=== PATIENT | female | born 1995 | race African-American/Black ===

== ENCOUNTER 2017-01-20 19:47 | Inpatient (IN) | payer OTHER ==
[~2017-01-20] VITALS: Ht 162.6 cm; Wt 87.1 kg
[2017-01-20] MEDS ORDERED: PREN-88 PO (20:42)
[2017-01-20] MEDS ORDERED: LIDOCAINE HCL 1% 20ML VIAL (Pyxis) INJ INFIL SCH (20:45)
[2017-01-20] MEDS ORDERED: CARBOPROST TROMETHAMINE 250 MCG/ML AMPUL IM PRN (20:45)
[2017-01-20] MEDS ORDERED: MISOPROSTOL 100MCG TABLET VG SCH (20:45)
[2017-01-20] MEDS ORDERED: MISOPROSTOL 200MCG TABLET VG SCH (20:45)
[2017-01-20] MEDS ORDERED: METHYLERGONOVINE MALEATE 0.2 MG/ML IM PRN (20:45)
[2017-01-20] MEDS ORDERED: BUTORPHANOL TARTRATE 2 MG/ML VIAL IV PRN (20:45)
[2017-01-20] MEDS: LACTATED RINGERS 1,000 ML IV SCH (20:50)
[2017-01-20 22:20] LABS: BASOPHILS % 0.2 % (0.0-2.0); EOSINOPHILS % 0.5 % (0.0-5.0); HEMATOCRIT. 32.2 % (36.0-48.0); HEMOGLOBIN. 10.9 g/dL (12.0-16.0); LYMPHOCYTES % 18.3 % (20.0-50.0); MEAN CORPUSCULAR HEMOGLOBIN 30.5 pg (28.0-32.0); MEAN CORPUSCULAR VOLUME 89.8 fL (81.0-99.0); MEAN PLATELET VOLUME 8.2 fl (7.4-10.4); MONOCYTES % 4.8 % (2.0-8.0); NEUTROPHILS % 76.2 % (40.0-76.0); PLATELET 176 x1000/uL (130-400); RED BLOOD CELL COUNT 3.58 mill/uL (4.2-5.4); RED CELL DISTRIBUTION WIDTH 13.5 % (11.6-14.6); WHITE BLOOD COUNT 7.4 x1000/uL (4.5-11.0)
[2017-01-20 22:21] LABS: CLARITY URINE CLEAR (CLEAR); COLOR URINE YELLOW (YELLOW); GLUCOSE URINE NEGATIVE (NEGATIVE); KETONES URINE 2+ (NEGATIVE); LEUKOCYTE ESTERASE URINE NEGATIVE (NEGATIVE); NITRITE URINE NEGATIVE (NEGATIVE); OCCULT BLOOD URINE NEGATIVE (NEGATIVE); PH URINE 6.5 (4.5-8.0); PROTEIN URINE NEGATIVE (NEGATIVE); SPECIFIC GRAVITY URINE 1.013 (1.005-1.030)
[2017-01-20] MEDS: CEFAZOLIN 2,000 MG in DEXT 5% WATER 100 ML IV SCH (22:22)
[2017-01-20 22:30] LABS: PROTHROMBIN TIME 10.1 sec
[2017-01-20 22:31] LABS: *AMPHETAMINES SCREEN URINE NEGATIVE (NEGATIVE); *BARBITURATES SCREEN URINE NEGATIVE (NEGATIVE); *BENZODIAZEPINES SCREEN URINE NEGATIVE (NEGATIVE); *COCAINE SCREEN URINE NEGATIVE (NEGATIVE); CANNABINOID URINE SCREEN NEGATIVE (NEGATIVE); ECSTASY MDMA SCREEN URINE NEGATIVE (NEGATIVE); METHADONE URINE SCREEN NEGATIVE (NEGATIVE); OPIATES URINE SCREEN NEGATIVE (NEGATIVE); PHENCYCLIDINE URINE SCREEN NEGATIVE (NEGATIVE)
[2017-01-20 22:36] LABS: ALBUMIN 2.4 g/dL (3.4-5.0); ANION GAP 11; CALCIUM 8.1 mg/dL (8.5-10.1); CARBON DIOXIDE 27 mEq/L (21-32); CHLORIDE 104 mEq/L (98-107); INDEX HEMOLYSI 1 (1-3); INDEX ICTERIC 1 (1-4); INDEX LIPEMIC 1 (1-3); UREA NITROGEN BLOOD 6 mg/dL (7-21)
[2017-01-20 22:39] LABS: ALANINE AMINOTRANSFERASE 126 IU/L (13-61); eGFR > 60 mL/min (>60)
[2017-01-20 22:57] LABS: HEPATITIS B SURFACE ANTIGEN NEGATIVE
[2017-01-21] MEDS ORDERED: BUTORPHANOL TARTRATE 2 MG/ML VIAL IV PRN (01:00)
[2017-01-21] MEDS ORDERED: PROMETHAZINE HCL 25MG TABLET PO PRN (01:00)
[2017-01-21] MEDS: LACTATED RINGERS 1,000 ML IV SCH ×2 (01:21→05:52)
[2017-01-21] MEDS ORDERED: BUPIVACAINE HCL/NS/PF EPIDURAL 100 ML EP ONE (04:51)
[2017-01-21] MEDS ORDERED: BUPIVACAINE HCL/PF 0.25% (2.5MG/ML) 10ML ONE (04:52)
[2017-01-21] MEDS: CEFAZOLIN 2,000 MG in DEXT 5% WATER 100 ML IV SCH (06:29)
[2017-01-21] MEDS: DEXT 5%/LR + PITOCIN 20UNITS/L 1,000 ML IV SCH ×2 (11:21→12:08)
[2017-01-21] MEDS ORDERED: DEXT 5%/LR + PITOCIN 20UNITS/L 1,000 ML IV SCH (11:35)
[2017-01-21] MEDS ORDERED: BISACODYL 10MG SUPP PR PRN (11:45)
[2017-01-21] MEDS ORDERED: IBUPROFEN 400MG TABLET PO PRN (11:45)
[2017-01-21] MEDS ORDERED: ACETAMINOPHEN WITH CODEINE 300/30MG TABLET PO PRN ×2 (11:45)
[2017-01-21] MEDS ORDERED: GLYCERIN/WITCH HAZEL LEAF MEDICATED PAD TOP PRN (11:45)
[2017-01-21] MEDS ORDERED: HEMORRHOIDAL SUPP PR PRN (11:45)
[2017-01-21] MEDS: IBUPROFEN 800MG TABLET PO PRN (12:45)
[2017-01-21 14:15] VITALS: BP 108/59
[2017-01-21 15:45] VITALS: BP 107/63
[2017-01-21] MEDS: SIMETHICONE 80MG TABLET CHEW PO SCH ×2 (17:54→22:27)
[2017-01-21 20:10] VITALS: BP 110/74
[2017-01-21] MEDS: DOCUSATE SODIUM 100MG CAPSULE PO SCH (21:00)
[2017-01-22 07:17] LABS: BASOPHILS % 0.1 % (0.0-2.0); EOSINOPHILS % 0.3 % (0.0-5.0); HEMATOCRIT. 32.2 % (36.0-48.0); HEMOGLOBIN. 10.7 g/dL (12.0-16.0); LYMPHOCYTES % 13.8 % (20.0-50.0); MEAN CORPUSCULAR HEMOGLOBIN 29.9 pg (28.0-32.0); MEAN CORPUSCULAR HGB CONC 33.3 g/dL (31.0-37.0); MEAN PLATELET VOLUME 8.6 fl (7.4-10.4); MONOCYTES % 6.6 % (2.0-8.0); NEUTROPHILS % 79.2 % (40.0-76.0); PLATELET 208 x1000/uL (130-400); RED BLOOD CELL COUNT 3.58 mill/uL (4.2-5.4); RED CELL DISTRIBUTION WIDTH 13.6 % (11.6-14.6)
[2017-01-22 07:45] VITALS: BP 104/76
[2017-01-22] MEDS: IBUPROFEN 800MG TABLET PO PRN (08:38)
[2017-01-22] MEDS: PRENATAL VIT/FE FUMARATE/FA TABLET PO SCH (08:38)
[2017-01-22] MEDS: FERROUS SULFATE 325MG TABLET PO SCH ×3 (08:38→18:08)
[2017-01-22] MEDS: SIMETHICONE 80MG TABLET CHEW PO SCH ×4 (08:39→21:08)
[2017-01-22 16:05] VITALS: BP 117/62
[2017-01-22 20:00] VITALS: BP 109/72
[2017-01-22] MEDS: DOCUSATE SODIUM 100MG CAPSULE PO SCH (21:06)
[2017-01-23 04:15] VITALS: BP 110/71
[2017-01-23] MEDS ORDERED: TETANUS, DIPHTHERIA, PERTUSSIS VAC/PF 0.5ML (>7YR OLD) IM ONE (05:15)
[2017-01-23 08:25] VITALS: BP 114/74
[2017-01-23] MEDS: FERROUS SULFATE 325MG TABLET PO SCH (08:54)
[2017-01-23] MEDS: PRENATAL VIT/FE FUMARATE/FA TABLET PO SCH (08:54)
[2017-01-23] MEDS: SIMETHICONE 80MG TABLET CHEW PO SCH (08:55)
== END 2017-01-23 12:50 | disposition home or self-care (01) | DRG 560 ==
LOC: L&D 19:47 → OBSVTOIN 19:47 → 8EST 01-21 13:35
PROVIDERS: ADMIT Obstetrics & Gynecology; ATTEND Obstetrics & Gynecology
PROC: 0KQM0ZZ Repair Perineum Muscle, Open Approach (ICD-10-PCS; 2017-01-21)
PROC: 00HU33Z Insertion of Infusion Device into Spinal Canal, Percutaneous Approach (ICD-10-PCS; 2017-01-21)
PROC: 3E0R3CZ (ICD-10-PCS; 2017-01-21)
PROC: 10E0XZZ Delivery of Products of Conception, External Approach (ICD-10-PCS; principal; 2017-01-21 11:15)
DX: O69.81X0 Labor and delivery complicated by cord around neck, without compression, not applicable or unspecified (principal); O70.1 Second degree perineal laceration during delivery; Z37.0 Single live birth; Z3A.37 37 weeks gestation of pregnancy; Z23 Encounter for immunization
CPT/HCPCS: 36415; 76805; 76818; 80053; 80305; 81003; 85025; 85610; 85730; 86592; 86703; 86762; 86850; 86900; 87340; 90715; G0378; J0595; J0690; J2590; J3490; J7060; J7120

== ENCOUNTER 2017-04-19 11:59 | Emergency (ER) | payer OTHER ==
[~2017-04-19] VITALS: Ht 162.6 cm; Wt 90.0 kg
[2017-04-19] MEDS ORDERED: ONDANSETRON 4MG ODT PO ONE (13:15)
[2017-04-19] MEDS ORDERED: DICYCLOMINE HCL 10MG CAPSULE PO ONE (13:15)
[2017-04-19 14:19] LABS: BASOPHILS % 0.6 % (0.0-2.0); EOSINOPHILS % 0.5 % (0.0-5.0); HEMATOCRIT. 37.7 % (36.0-48.0); HEMOGLOBIN. 12.6 g/dL (12.0-16.0); LYMPHOCYTES % 15.1 % (20.0-50.0); MEAN CORPUSCULAR HEMOGLOBIN 28.8 pg (28.0-32.0); MEAN CORPUSCULAR HGB CONC 33.3 g/dL (31.0-37.0); MEAN CORPUSCULAR VOLUME 86.4 fL (81.0-99.0); MEAN PLATELET VOLUME 8.3 fl (7.4-10.4); MONOCYTES % 6.5 % (2.0-8.0); NEUTROPHILS % 77.3 % (40.0-76.0); PLATELET 265 x1000/uL (130-400); RED BLOOD CELL COUNT 4.36 mill/uL (4.2-5.4); WHITE BLOOD COUNT 4.7 x1000/uL (4.5-11.0)
[2017-04-19 14:36] LABS: ALANINE AMINOTRANSFERASE 986 IU/L (13-61); ALBUMIN 3.6 g/dL (3.4-5.0); ANION GAP 12; CALCIUM 9.3 mg/dL (8.5-10.1); CARBON DIOXIDE 26 mEq/L (21-32); CHLORIDE 105 mEq/L (98-107); INDEX HEMOLYSI 1 (1-3); INDEX ICTERIC 2 (1-4); INDEX LIPEMIC 1 (1-3); LIPASE 125 IU/L (73-393); UREA NITROGEN BLOOD 11 mg/dL (7-21); eGFR > 60 mL/min (>60)
[2017-04-19 17:23] VITALS: BP 128/74
== END 2017-04-19 17:26 | disposition home or self-care (01) ==
LOC: ER 13:58
DX: K76.0 Fatty (change of) liver, not elsewhere classified (principal)
CPT/HCPCS: 36415; 76705; 80053; 83690; 85025; 99285; Q0162

== ENCOUNTER 2018-03-31 17:04 | Observation (INO) | payer MEDICAID ==
[~2018-03-31] VITALS: Ht 162.6 cm; Wt 95.3 kg
[2018-03-31] MEDS ORDERED: PNV1TABL76 PO (17:19)
[2018-03-31] MEDS ORDERED: CHOL100046 PO (17:19)
[2018-03-31 18:07] LABS: COLOR URINE YELLOW (YELLOW); KETONES URINE NEGATIVE (NEGATIVE); LEUKOCYTE ESTERASE URINE NEGATIVE (NEGATIVE); NITRITE URINE NEGATIVE (NEGATIVE); OCCULT BLOOD URINE NEGATIVE (NEGATIVE); PH URINE 5.5 (4.5-8.0); PROTEIN URINE NEGATIVE (NEGATIVE); SPECIFIC GRAVITY URINE 1.027 (1.005-1.030)
[2018-03-31 19:20] LABS: CLARITY URINE CLEAR (CLEAR)
== END 2018-03-31 19:30 | disposition home or self-care (01) ==
LOC: L&D 17:04
PROVIDERS: ADMIT Specialist; ATTEND Specialist
DX: O26.852 Spotting complicating pregnancy, second trimester (principal); O26.892 Other specified pregnancy related conditions, second trimester; R10.2 Pelvic and perineal pain; Z3A.20 20 weeks gestation of pregnancy
CPT/HCPCS: 76805; 81003; 99281; G0378

== ENCOUNTER 2018-08-08 18:01 | Emergency (ER) | payer MEDICAID ==
[~2018-08-08] VITALS: Ht 162.6 cm; Wt 93.2 kg
[~2018-08-08 18:01] MED LIST: CHOL100046 PO; PNV1TABL76 PO
[2018-08-08 18:15] VITALS: BP 113/67
[2018-08-08 19:22] LABS: CLARITY URINE CLOUDY (CLEAR); COLOR URINE DARK YELLOW (YELLOW); KETONES URINE TRACE (NEGATIVE); LEUKOCYTE ESTERASE URINE 1+ (NEGATIVE); NITRITE URINE NEGATIVE (NEGATIVE); OCCULT BLOOD URINE TRACE (NEGATIVE); PH URINE 5.5 (4.5-8.0); PROTEIN URINE TRACE (NEGATIVE); SPECIFIC GRAVITY URINE 1.028 (1.005-1.030)
== END 2018-08-09 08:11 | disposition left against medical advice (07) ==
LOC: ER 08-09 08:11
DX: M54.9 Dorsalgia, unspecified (principal); R11.0 Nausea
CPT/HCPCS: 81003; 81025; 99283

== ENCOUNTER 2018-08-26 22:26 | Inpatient (IN) | payer MEDICAID ==
[~2018-08-26] VITALS: Ht 162.6 cm; Wt 93.0 kg
[2018-08-27] MEDS ORDERED: FAMOTIDINE 20MG/2ML VIAL IV STA (00:23)
[2018-08-27] MEDS ORDERED: MAGNESIUM/ALUMINUM HYDROXIDE/SIMETHICONE 30ML UDC PO STA (00:23)
[2018-08-27] MEDS ORDERED: MORPHINE SULFATE 4 MG/ML CPJ (NOT FOR IM USE) IV STA (00:23)
[2018-08-27] MEDS ORDERED: KETOROLAC 30MG/ML VIAL IV STA (00:23)
[2018-08-27] MEDS ORDERED: SODIUM CHLORIDE 0.9% 1,000 ML IV ONE (00:23)
[2018-08-27] MEDS ORDERED: ONDANSETRON HCL 4MG/2ML INJ IV STA (00:23)
[2018-08-27 00:55] LABS: BASOPHILS % 0.2 % (0.0-2.0); EOSINOPHILS % 0.2 % (0.0-5.0); HEMATOCRIT. 38.1 % (36.0-48.0); HEMOGLOBIN. 12.5 g/dL (12.0-16.0); LYMPHOCYTES % 8.8 % (20.0-50.0); MEAN CORPUSCULAR HEMOGLOBIN 28.2 pg (28.0-32.0); MEAN CORPUSCULAR VOLUME 85.8 fL (81.0-99.0); MEAN PLATELET VOLUME 8.8 fl (7.4-10.4); MONOCYTES % 3.3 % (2.0-8.0); NEUTROPHILS % 87.5 % (40.0-76.0); PLATELET 288 x1000/uL (130-400); RED BLOOD CELL COUNT 4.45 mill/uL (4.2-5.4); RED CELL DISTRIBUTION WIDTH 14.6 % (11.6-14.6)
[2018-08-27 00:58] LABS: CHLORIDE 104 mEq/L (98-107)
[2018-08-27 01:05] LABS: INR 1.1; PROTHROMBIN TIME 10.6 sec (9.1-11.1)
[2018-08-27 01:06] LABS: CLARITY URINE CLOUDY (CLEAR); COLOR URINE DARK YELLOW (YELLOW); KETONES URINE TRACE (NEGATIVE); LEUKOCYTE ESTERASE URINE 1+ (NEGATIVE); NITRITE URINE NEGATIVE (NEGATIVE); OCCULT BLOOD URINE NEGATIVE (NEGATIVE); PROTEIN URINE TRACE (NEGATIVE); SPECIFIC GRAVITY URINE 1.033 (1.005-1.030)
[2018-08-27 01:09] LABS: B-HCG QUANTITATIVE < 1.0 mIU/mL (<3)
[2018-08-27 01:35] LABS: HCG SCREEN NEGATIVE
[2018-08-27] MEDS ORDERED: CEFTRIAXONE 1 G PREMIX 50 ML IV ONE (02:00)
[2018-08-27] MEDS ORDERED: MORPHINE SULFATE 4 MG/ML CPJ (NOT FOR IM USE) IV PRN (02:45)
[2018-08-27] MEDS ORDERED: ONDANSETRON HCL 4MG/2ML INJ IV PRN (02:45)
[2018-08-27] MEDS: DEXT 5%/0.45% NACL 1000ML 1,000 ML IV SCH ×3 (03:27→18:38)
[2018-08-27 08:00] VITALS: BP 129/72
[2018-08-27] MEDS: PANTOPRAZOLE SODIUM 40 MG/VIAL IV SCH ×2 (09:00→10:10)
[2018-08-27 09:27] VITALS: BP 129/72
[2018-08-27 12:00] VITALS: BP 111/66
[2018-08-27 16:00] VITALS: BP 105/64
[2018-08-27 17:11] LABS: HEPATITIS B SURFACE ANTIGEN NEGATIVE
[2018-08-27 17:40] LABS: HEPATITIS B CORE AB IGM NEGATIVE
[2018-08-27 17:41] LABS: HEPATITIS A AB IGM NEGATIVE (NEGATIVE)
[2018-08-27] MEDS: PIPERACILLIN/TAZ 3.375G PREMIX 50 ML IV SCH (18:38)
[2018-08-27 20:00] VITALS: BP 98/44
[2018-08-28] VITALS: BP 103/57
[2018-08-28] MEDS: PIPERACILLIN/TAZ 3.375G PREMIX 50 ML IV SCH ×3 (00:21→11:02)
[2018-08-28] MEDS: DEXT 5%/0.45% NACL 1000ML 1,000 ML IV SCH (00:22)
[2018-08-28 04:00] VITALS: BP 102/62
[2018-08-28 06:54] LABS: BASOPHILS % 0.3 % (0.0-2.0); EOSINOPHILS % 2.4 % (0.0-5.0); HEMATOCRIT. 33.4 % (36.0-48.0); HEMOGLOBIN. 11.4 g/dL (12.0-16.0); LYMPHOCYTES % 27.1 % (20.0-50.0); MEAN CORPUSCULAR VOLUME 84.5 fL (81.0-99.0); MONOCYTES % 6.1 % (2.0-8.0); NEUTROPHILS % 64.1 % (40.0-76.0); PLATELET 246 x1000/uL (130-400); RED BLOOD CELL COUNT 3.95 mill/uL (4.2-5.4); RED CELL DISTRIBUTION WIDTH 14.4 % (11.6-14.6)
[2018-08-28 07:10] LABS: CHLORIDE 106 mEq/L (98-107)
[2018-08-28 08:00] VITALS: BP 121/67
[2018-08-28] MEDS: PANTOPRAZOLE SODIUM 40 MG/VIAL IV SCH (09:00)
[2018-08-28 11:57] VITALS: BP 107/72
[2018-08-28 13:49] VITALS: BP 107/52
== END 2018-08-28 14:30 | disposition home or self-care (01) | DRG 463 ==
LOC: ER 22:26 → 6EST 08-27 02:24 → SUPCPDRO 08-27 02:34 → ENRESERV 08-27 07:07
PROVIDERS: ADMIT Hospitalist; ATTEND Hospitalist
DX: N39.0 Urinary tract infection, site not specified (principal); K80.20 Calculus of gallbladder without cholecystitis without obstruction; R74.0 Nonspecific elevation of levels of transaminase and lactic acid dehydrogenase [LDH]; Z79.899 Other long term (current) drug therapy
CPT/HCPCS: 36415; 74176; 74181; 76700; 78227; 80053; 80076; 81003; 81025; 83690; 84702; 84703; 85025; 85610; 86705; 86709; 86803; 87086; 87340; 96361; 96365; 96375; 99285; A9537; C9113; J0696; J1885; J2270; J2543; J3490; J7030